=== PATIENT | male | born 1990 | race Caucasian/White ===

== ENCOUNTER 2022-09-17 07:43 | Emergency (ER) | payer OTHER ==
[2022-09-17] MEDS ORDERED: SODIUM CHLORIDE 0.9% 1,000 ML IV STA (08:06)
[2022-09-17 08:09] VITALS: RESP 16; TEMP 98.7
--- NOTE | 2022-09-17 08:13 | ED ---
General Adult HPI - General Stated complaint: allergic reaction Time Seen by Provider: 09/17/22 07:49 Source: patient, RN notes reviewed, old records reviewed - History of Present Illness Initial comments: 31-year-old male presents to the emergency room via EMS from [facility]. States that he is at [facility] for 18 years of [place] abuse. Last [place] pill taken on Thursday. States [facility] found fentanyl in his urine which he thinks may been in the marijuana that he also uses but does not take fentanyl. Denies any IV drug use. Presents today with nausea vomiting multiple times, clear and watery. States [facility] gave him Subutex which he states has caused nausea vomiting for him in the past. These symptoms are similar to when he said Subutex in the past. They did give him Benadryl and prednisone prior to arrival in the ER today. Denies any shortness of breath or chest pain. No rashes, difficulty swallowing or throat swelling. -: days(s) (1) Associated Symptoms: nausea/vomiting, other (facial swelling) Treatments Prior to Arrival: other (Benadryl prednisone) - Related Data Allergies Allergy/AdvReac Type Severity Reaction Status Date / Time acetaminophen Allergy Unknown Verified 09/17/22 08:11 [From Tylenol-Codeine #3] buprenorphine [From Subutex] Allergy Nausea & Verified 09/17/22 08:11 Vomiting codeine Allergy Unknown Verified 09/17/22 08:11 [From Tylenol-Codeine #3] naproxen Allergy Rash/Hives Verified 09/17/22 08:11 Review of Systems ROS Statement: Those systems with pertinent positive or pertinent negative responses have been documented in the HPI. ROS Other: All systems not noted in ROS Statement are negative. General Exam Limitations: no limitations General appearance: alert, in no apparent distress Head exam: Present: atraumatic, normocephalic Eye exam: Absent: scleral icterus, conjunctival injection, periorbital swelling ENT exam: Present: normal oropharynx, mucous membranes moist Neck exam: Present: full ROM. Absent: tenderness, meningismus Respiratory exam: Present: normal lung sounds bilaterally. Absent: respiratory distress, wheezes, rales, rhonchi, stridor, chest wall tenderness, accessory muscle use Cardiovascular Exam: Present: tachycardia GI/Abdominal exam: Present: soft. Absent: distended, tenderness, rigid Extremities exam: Present: normal capillary refill. Absent: pedal edema Back exam: Present: full ROM. Absent: tenderness, CVA tenderness (R), CVA tenderness (L), rash noted Neurological exam: Present: alert, oriented X3 Psychiatric exam: Present: normal affect, normal mood Skin exam: Present: warm, dry, normal color. Absent: cyanosis, diaphoretic, pallor Course Vital Signs 09/17/22 09/17/22 07:48 09:00 Temperature 98.7 F Pulse Rate 109 H 86 Respiratory 16 16 Rate Blood Pressure 150/107 145/81 O2 Sat by Pulse 94 L 96 Oximetry EKG Findings - EKG Results: EKG: sinus rhythm (EKG shows sinus rhythm with a ventricular rate of 97, DE interval 0.148, QRS 0.85, QTC 0.467; normal axis) Medical Decision Making - Medical Decision Making Patient without any difficulty in breathing, lung sounds are clear to auscultation. No rashes. No swelling. No vomiting in the emergency room. Abdomen is soft and nontender. Patient is afebrile. Labs show a mild leukocytosis likely from vomiting. Electrolytes are unremarkable. Patient was given as IV fluids and his daily medications Nausea and vomiting likely a side effect of Subutex. Patient states that he has had nausea vomiting when he has taken this medication in the past. He was directed to notify staff of the side effects. He will be discharged back to the facility for continuation of care. Vital signs stable. Case discussed with Dr. Piedra - Lab Data Result diagrams: 09/17/22 08:21 09/17/22 08:21 Lab Results 09/17/22 09/17/22 Range/Units 08:21 08:21 WBC 11.8 H (3.8-10.6) k/uL RBC 4.81 (4.30-5.90) m/uL Hgb 15.1 (13.0-17.5) gm/dL Hct 41.0 (39.0-53.0) % MCV 85.2 (80.0-100.0) fL MCH 31.4 (25.0-35.0) pg MCHC 36.9 (31.0-37.0) g/dL RDW 12.0 (11.5-15.5) % Plt Count 131 L (150-450) k/uL MPV 10.7 Neutrophils % 84 % Lymphocytes % 8 % Monocytes % 7 % Eosinophils % 1 % Basophils % 0 % Neutrophils # 9.9 H (1.3-7.7) k/uL Lymphocytes # 0.9 L (1.0-4.8) k/uL Monocytes # 0.8 (0-1.0) k/uL Eosinophils # 0.1 (0-0.7) k/uL Basophils # 0.0 (0-0.2) k/uL Sodium 138 (137-145) mmol/L Potassium 3.8 (3.5-5.1) mmol/L Chloride 104 (98-107) mmol/L Carbon Dioxide 24 (22-30) mmol/L Anion Gap 10 mmol/L BUN 13 (9-20) mg/dL Creatinine 0.99 (0.66-1.25) mg/dL Est GFR (CKD-EPI)AfAm >90 (>60 ml/min/1.73 sqM) Est GFR (CKD-EPI)NonAf >90 (>60 ml/min/1.73 sqM) Glucose 100 H (74-99) mg/dL Calcium 9.6 (8.4-10.2) mg/dL Total Bilirubin 0.8 (0.2-1.3) mg/dL AST 22 (17-59) U/L ALT 21 (4-49) U/L Alkaline Phosphatase 85 (38-126) U/L Total Protein 7.2 (6.3-8.2) g/dL Albumin 4.8 (3.5-5.0) g/dL Disposition Clinical Impression: Medication side effect, Nausea & vomiting Disposition: HOME SELF-CARE Condition: Good Instructions (If sedation given, give patient instructions): Acute Nausea and Vomiting (ED) Additional Instructions: Please discuss with staff your reaction and side effects of taking Subutex. Return to the emergency room with any new or concerning symptoms. Is patient prescribed a controlled substance at d/c from ED?: No Referrals: None,Stated [Primary Care Provider] - 1-2 days Time of Disposition: 09:14
[2022-09-17 08:28] LABS: Basophils % (A) 0 %; Eosinophils # (A) 0.1 k/uL (0-0.7); Eosinophils % (A) 1 %; HGB 15.1 gm/dL (13.0-17.5); Lymphocytes # (A) 0.9 k/uL (1.0-4.8); Lymphocytes % (A) 8 %; MCH 31.4 pg (25.0-35.0); MCHC 36.9 g/dL (31.0-37.0); MCV 85.2 fL (80.0-100.0); Mean Platelet Volume 10.7; Monocytes # (A) 0.8 k/uL (0-1.0); Monocytes % (A) 7 %; Neutrophils # (A) 9.9 k/uL (1.3-7.7); Neutrophils % (A) 84 %; Platelet Count 131 k/uL (150-450); RBC 4.81 m/uL (4.30-5.90); WBC 11.8 k/uL (3.8-10.6)
[2022-09-17 08:41] LABS: ALT 21 U/L (4-49); AST 22 U/L (17-59); African American GFR (CKD) >90 (>60 ml/min/1.73 sqM); Albumin 4.8 g/dL (3.5-5.0); Alkaline Phosphatase 85 U/L (38-126); Anion Gap 10 mmol/L; Blood Urea Nitrogen 13 mg/dL (9-20); Calcium 9.6 mg/dL (8.4-10.2); Carbon Dioxide 24 mmol/L (22-30); Chloride 104 mmol/L (98-107); Glucose 100 mg/dL (74-99); Non-African American GFR(CKD) >90 (>60 ml/min/1.73 sqM); Potassium 3.8 mmol/L (3.5-5.1); Sodium 138 mmol/L (137-145); Total Bilirubin 0.8 mg/dL (0.2-1.3); Total Protein 7.2 g/dL (6.3-8.2)
[2022-09-17] MEDS ORDERED: ONDANSETRON 4 MG/2 ML VIAL IVP STA (08:48)
[2022-09-17] MEDS ORDERED: FLUoxetine HCL 20 MG CAP PO STA ×2 (09:06→09:08)
[2022-09-17] MEDS ORDERED: METOPROLOL TARTRATE 50 MG TAB PO STA (09:06)
[2022-09-17 10:03] VITALS: PULSE 85
[2022-09-17 10:14] VITALS: BP 138/72
== END 2022-09-17 10:00 | disposition home or self-care (01) ==
LOC: EC 07:43
DX: R11.2 Nausea with vomiting, unspecified (principal); Z88.6 Allergy status to analgesic agent; Z88.5 Allergy status to narcotic agent
CPT/HCPCS: 36415; 80053; 85025; 93005; 96360; 99284